=== PATIENT | male | born 1970 | race Caucasian/White ===

== ENCOUNTER 2016-10-06 06:25 | Day surgery (SDC) | payer BC ==
[~2016-10-06 06:25] MED LIST: Lactated Ringers 1,000 ML IV SCH
--- NOTE | 2016-10-06 07:16 | PCM.PREANE ---
Preanesthetic Assessment - Anesthesia/Transfusion/Family Hx Anesthesia History: No Prior Anesthesia Family History of Anesthesia Reaction: No Transfusion History: No Prior Transfusion(s) Intubation History: Unknown - Review of Systems General: No Symptoms Pulmonary: No Symptoms Cardiovascular: No Symptoms Gastrointestinal: Other (change in bowel habits, one daughter Elen's disease) Neurological: No Symptoms Other: Reports: None - Physical Assessment NPO Status Date: 10/05/16 NPO Status Time: 22:00 O2 Sat by Pulse Oximetry: 98 Respiratory Rate: 16 Vital Signs: Last Vital Signs Temp 36.6 C 10/06/16 06:29 Pulse 50 L 10/06/16 06:29 Resp 16 10/06/16 06:29 BP 153/78 H 10/06/16 06:29 Pulse Ox 98 10/06/16 06:29 Height: 1.68 m Weight: 74.389 kg ASA Class: 2 Mental Status: Alert & Oriented x3 Airway Class: Mallampati = 2 Dentition: Reports: Lindsey(s) (multiple upper front), Missing Tooth/Teeth Thyro-Mental Finger Breadths: 3 Mouth Opening Finger Breadths: 2 ROM/Head Extension: Full Lungs: Clear to Auscultation, Normal Respiratory Effort Cardiovascular: Regular Rate, Regular Rhythm - Allergies Allergies/Adverse Reactions: Allergies Allergy/AdvReac Type Severity Reaction Status Date / Time No Known Allergies Allergy Verified 10/01/16 16:28 - Blood Blood Available: No - Anesthesia Plan Pre-Op Medication Ordered: None - Acknowledgements Anesthesia Type Planned: MAC Pt an Appropriate Candidate for the Planned Anesthesia: Yes Alternatives and Risks of Anesthesia Discussed w Pt/Guardian: Yes Pt/Guardian Understands and Agrees with Anesthesia Plan: Yes PreAnesthesia Questionnaire Other HEENT History: wears glasses Cardiovascular History: Reports: None Respiratory History: Reports: None Gastrointestinal History: Reports: Other (See Below) (h/o elevated liver enzymes , other labs ok) Genitourinary History: Reports: None Musculoskeletal History: Reports: None Neurological History: Reports: None Psychiatric History: Reports: None Endocrine/Metabolic History: Reports: None Hematologic History: Reports: None Immunologic History: Reports: None Oncologic (Cancer) History: Reports: None Dermatologic History: Reports: None - Past Surgical History Head Surgeries/Procedures: Reports: None HEENT Surgical History: Reports: None Cardiovascular Surgical History: Reports: None Respiratory Surgical History: Reports: None GI Surgical History: Reports: None Male Surgical History: Reports: None, Other (See Below) (cystoscopy) Endocrine Surgical History: Reports: None Neurological Surgical History: Reports: None Musculoskeletal Surgical History: Reports: None Oncologic Surgical History: Reports: None Dermatological Surgical History: Reports: None - SUBSTANCE USE Smoking Status *Q: Current Every Day Smoker Tobacco Use Within Last Twelve Months: Smokeless Tobacco Recreational Drug Use History: No - HOME MEDS Home Medications: Home Meds . [No Known Home Meds] 10/01/16 [History] - CURRENT (IN HOUSE) MEDS Current Meds: Current Medications Lactated Ringer's (Ringers, Lactated) 1,000 mls @ 125 mls/hr IV ASDIRECTED [facility] Last Admin: 10/06/16 06:46 Dose: 125 mls/hr
[2016-10-06] MEDS ORDERED: Propofol 200 MG/20 ML SDV ONE (07:28)
[2016-10-06] MEDS ORDERED: Midazolam 1 MG/ML 2 ML SDV ONE (07:28)
--- NOTE | 2016-10-06 08:47 | OR ---
SURGEON: Raul العلي M.D. DATE OF PROCEDURE: 10/06/2016 OPERATION PERFORMED: Esophagogastroduodenoscopy with biopsy. ANESTHESIA: MAC. ASA CLASSIFICATION: II. PREOPERATIVE DIAGNOSIS: Hematemesis. POSTOPERATIVE DIAGNOSIS: Mild gastritis. DESCRIPTION OF PROCEDURE: The patient was taken to the endoscopy room and positioned on the endoscopy table in the supine position. Time-out was called for appropriate identification of patient and procedure. Bite-block was placed between the patient's teeth. Monitored anesthesia care was provided. The gastroscope was inserted into the mouth and advanced without difficulty through the esophagus and stomach into the duodenum, where examination was carried out in a retrograde fashion. Biopsies of the duodenum were obtained. No acute ulcerations were noted. The gastroscope was withdrawn into the stomach, which does show mild to moderate gastritis. Antral biopsies were obtained to look for the presence of Helicobacter pylori. The gastroscope was retroflexed to visualize the proximal stomach. I did not see a significant hiatal hernia. As the scope was withdrawn, the greater and lesser curvatures were carefully visualized. No ulcerations or tumors were noted. As the scope was withdrawn into the distal esophagus, there did appear to be some mild inflammatory changes. Biopsies of the distal esophagus were also obtained. The mid and proximal esophagus showed no acute abnormalities. Peristalsis was quite adequate. The vocal cords were visualized as the scope was withdrawn and noted to move symmetrically. The gastroscope was then removed with the patient having tolerated the procedure well. Following colonoscopy, he was taken to recovery room in stable condition. JENNIFER / MARY /[id number]
--- NOTE | 2016-10-06 08:51 | PCM.OPNOTE ---
- General Post-Op/Procedure Note Date of Surgery/Procedure: 10/06/16 Operative Procedure(s): Esophagogastroduodenoscopy with duodenal, gastric and esophageal biopsies. Colonoscopy. Pre Op Diagnosis: Hematemesis. Change in bowel habits. Post-Op Diagnosis: Gastritis with esophagitis. No evidence of colonic neoplasia Anesthesia Technique: MAC (ASA II) Primary Surgeon: Raul العلي Condition: Good Free Text/Narrative:: Dictation [id number] CPT CODE [id number]
--- NOTE | 2016-10-06 08:53 | OR ---
SURGEON: Raul العلي M.D. DATE OF PROCEDURE: 10/06/2016 OPERATION PERFORMED: Colonoscopy. ANESTHESIA: MAC. ASA CLASSIFICATION: II. PREOPERATIVE DIAGNOSIS: Change in bowel habits. POSTOPERATIVE DIAGNOSIS: No evidence of neoplasia. DESCRIPTION OF PROCEDURE: The patient having completed esophagogastroduodenoscopy, he was now positioned in the left lateral decubitus position. The colonoscope was inserted into the rectum and advanced with minimal difficulty to the cecum. Despite multiple attempts we were never able to retroflex the colonoscope in the cecum. The colonoscope was then straightened and slowly withdrawn. The cecum, ascending colon, hepatic flexure, transverse colon, splenic flexure, descending colon, sigmoid colon, and rectum were very well visualized. The prep was excellent. No tumors, polyps, diverticula, or angiodysplastic changes were noted anywhere throughout the lower gastrointestinal tract. No ulcerations were noted. The colonoscope was withdrawn to the rectum and retroflexed to visualize the anal orifice from above. Again, no tumors or polyps were seen and there were no acute hemorrhoidal changes. The patient tolerated the procedure well and was taken to recovery room in stable condition. JENNIFER HERNANDEZ /[id number]
--- NOTE | 2016-10-06 08:57 | PCM.POSTAN ---
POST ANESTHESIA ASSESSMENT - MENTAL STATUS Mental Status: Alert, Oriented - RESPIRATORY Respiratory Status: Respiratory Rate WNL, Airway Patent, O2 Saturation Stable - CARDIOVASCULAR CV Status: Pulse Rate WNL, Blood Pressure Stable - GASTROINTESTINAL GI Status: No Symptoms - POST OP HYDRATION Hydration Status: Adequate & Stable - OBSERVATIONS Free Text/Narrative:: no anesthesia problems
[2016-10-06] MEDS ORDERED: Lactated Ringers 1,000 ML IV SCH (09:00)
[2016-10-06 09:24] VITALS: BP 163/96
[2016-10-06] MEDS ORDERED: fentaNYL 100 MCG/2 ML SDV IVPUSH PRN (11:39)
== END 2016-10-06 09:25 | disposition home or self-care (01) ==
LOC: MW.SDS 06:25
PROVIDERS: ATTEND Surgery
PROC: 0DB98ZX Excision of Duodenum, Via Natural or Artificial Opening Endoscopic, Diagnostic (ICD-10-PCS; principal; 2016-10-06)
PROC: 0DB38ZX Excision of Lower Esophagus, Via Natural or Artificial Opening Endoscopic, Diagnostic (ICD-10-PCS; 2016-10-06)
PROC: 0DB68ZX Excision of Stomach, Via Natural or Artificial Opening Endoscopic, Diagnostic (ICD-10-PCS; 2016-10-06)
PROC: 0DJD8ZZ Inspection of Lower Intestinal Tract, Via Natural or Artificial Opening Endoscopic (ICD-10-PCS; 2016-10-06)
DX: K29.50 Unspecified chronic gastritis without bleeding (principal); K20.9 Esophagitis, unspecified; F17.290 Nicotine dependence, other tobacco product, uncomplicated; Z83.79 Family history of other diseases of the digestive system; Z68.26 Body mass index [BMI] 26.0-26.9, adult
CPT/HCPCS: 43239; 45378; J2250; J7120; 00740; 88305; 88312; J2704